=== PATIENT | female | born 1980 | race Caucasian/White ===

== ENCOUNTER → 2016-07-01 | Outpatient (CLI) | payer OTHER ==
--- NOTE | 2016-07-01 11:52 | US ---
EXAMINATION TYPE: US OB <=14 wks transvag DATE OF EXAM: 07/01/2016 11:08 AM COMPARISON: NONE CLINICAL HISTORY: O46.91 Spotting. Positive beta-hCG test EXAM PERFORMED: Transvaginal (TV) and Transabdominal (TA) EXAM MEASUREMENTS: GESTATIONAL AGE / DATING Physician Established: not established Dates by LMP: ( 8 weeks/6 days) EDC: 02/10/2017 Dates by First Scan: no prior Dates by Current Scan for: (8 weeks/6 days) EDC: 02/04/2017 MATERNAL ANATOMY Uterus: 8.7 x 6.0 x 5.2 cm Right Ovary: 2.4 x 1.5 x 2.5 cm Left Ovary: 2.5 x 1.7 x 2.3 cm Post CDS / Adnexa: wnl Presence of free fluid: wnl Presence of corpus luteal cyst: small rt cyst 1.2 x 1.0 x 1.2 cm Presence of subchorionic bleed: possible small 0.8 x 1.7 x 0.3 cm GESTATION / SURVEY CRL: 2.4 cm (9 weeks/1 days) MSD: 3.3 cm (8 weeks/3 days) Yolk Sac (normal less than 6mm): 5mm Heart Rate: 167 bpm Rhythm: Normal IUP: Viable IUP Date of LMP: 05/06/2016 Beta HcG (if available): na TECHNOLOGIST IMPRESSION: viable IUP , small rt cyst , subchorionic bleed: possible small 0.8 x 1.7 x 0.3 cm Single live intrauterine gestation is confirmed as gestational sac, yolk sac, pole are identifi ed. There is tiny subchorionic hemorrhage along superior margin of gestational sac with the elongated 1.7 x 0.3 cm fluid collection seen. No free fluid is seen in pelvic cul-de-sac. Both ovaries are identified. Within right ovary there is 1.2 cm dominant oval anechoic lesion may ref lect corpus luteal cyst. No suspicious solid or cystic extraovarian adnexal masses are seen. IMPRESSION: Single live intrauterine gestation is confirmed, mean crown-rump length is 2.4 cm corresponding to 9 week 1 day old fetus. Tiny subchorionic hemorrhage is felt present.
== END | disposition home or self-care (01) ==
LOC: RADUSWWP 10:04
PROVIDERS: ATTEND Obstetrics & Gynecology
DX: O46.91 Antepartum hemorrhage, unspecified, first trimester (principal); Z3A.09 9 weeks gestation of pregnancy
CPT/HCPCS: 76801; 76817

== ENCOUNTER 2017-06-16 17:35 | Emergency (ER) | payer OTHER ==
[2017-06-16 17:49] VITALS: RESP 18
[2017-06-16] MEDS ORDERED: SODIUM CHLORIDE 0.9% 500 ML IV STA (19:10)
--- NOTE | 2017-06-16 19:19 | ED ---
General Adult HPI - General Chief complaint: Upper Respiratory Infection Stated complaint: cold, cough, vomiting Time Seen by Provider: 06/16/17 18:56 Source: patient, family, RN notes reviewed Mode of arrival: ambulatory Limitations: no limitations - History of Present Illness Initial comments: Chief complaint and history of present illness a 37-year-old female with multiple complaints. She started having chills and fever 4-5 days ago. Muscle aches and pains. Today she has laryngitis. No skin rashes. Diarrhea yesterday. The patient did get her flu shot this year. - Related Data Home Medications Medication Instructions Recorded Confirmed Methylphenidate HCl 20 mg PO BID 06/16/17 06/16/17 [Methylphenidate ER] Norlyda 0.35mg 1 tab PO DAILY 06/16/17 06/16/17 clonazePAM [KlonoPIN] 1 mg PO DAILY PRN 06/16/17 06/16/17 guaiFENesin SYRUP 100MG/5ML 200 mg PO Q6H PRN 06/16/17 06/16/17 [Robitussin] Previous Rx's Medication Instructions Recorded Amoxicillin 500 mg PO Q8H 10 Days capsule 06/16/17 Allergies Allergy/AdvReac Type Severity Reaction Status Date / Time No Known Allergies Allergy Verified 06/16/17 19:19 Review of Systems ROS Statement: Those systems with pertinent positive or pertinent negative responses have been documented in the HPI. Review of systems. Patient denies any significant headache or visual acuity changes she has of a sore throat no stiff neck she does have laryngitis. She does have cough. Is occasionally short of breath because of it. Low back musculoskeletal discomfort. No change in urination. She had diarrhea. Denies any balance problems no neuro deficits. All systems were reviewed. Past medical problems none. Surgeries none. Family history the patient is adopted. Patient denies any ALLERGIES. Nonsmoker. Drinks alcohol socially. A coworker had similar problems last week. ROS Other: All systems not noted in ROS Statement are negative. Past Medical History Past Medical History: No Reported History History of Any Multi-Drug Resistant Organisms: None Reported Past Surgical History: No Surgical Hx Reported Past Psychological History: ADD/ADHD Smoking Status: Never smoker Past Alcohol Use History: Occasional Past Drug Use History: None Reported General Exam - General Exam Comments Initial Comments: General: The patient is awake and alert, complains of muscle aches and pains, cough. Vital signs shows temperature 98.1 pulse 110 respiratory rate 18 pulse ox 90% room air blood pressure 135/86 Eye: Pupils are equal, round and reactive to light, extra-ocular movements are intact ; there is normal conjunctiva bilaterally. No signs of icterus. Ears, nose, mouth and throat: There are moist mucous membranes Ference mildly red. Right tympanic membrane red mildly full. Left TM normal. Neck: The neck is supple, there is no tenderness, no anterior cervical lymphadenopathy , thyroid not enlarged. Cardiovascular: Tachycardic heart rate, 108. No murmur, rub or gallop is appreciated. Respiratory: Lungs are clear to auscultation, respirations are non-labored, breath sounds are equal. No wheezes, stridor, rales, or rhonchi. Cough for 2 days Gastrointestinal: Abdomen soft to palpation, active bowel sounds, no palpable masses. Diarrhea for 2 days. Back: There is no tenderness to palpation in the midline. There is no obvious deformity. No rashes noted. Musculoskeletal: Normal ROM, no tenderness, There is no pedal edema. There is no calf tenderness or swelling. Sensation intact. Pulses equal bilaterally 2+. Neurological: No complaint of weakness or dizziness or any neuro complaints. Skin: Skin is warm and dry and no rashes or lesions are noted. Limitations: no limitations Course Vital Signs 06/16/17 17:45 Temperature 98.1 F Pulse Rate 110 H Respiratory 18 Rate Blood Pressure 135/86 O2 Sat by Pulse 98 Oximetry Medical Decision Making - Medical Decision Making Medical decision making; this is a 37-year-old female with complaint of muscle aches and pains nausea and vomiting. And laryngitis ongoing for several days. Labs show white count of 3.9 hemoglobin 12 hematocrit of 40, potassium 3.8 BUN 6 creatinine 0.7 GFR greater than 60. Glucose 99. Flu influenza AB-. Strep test negative. Urine shows 3 reds 4 whites. The patient has a red right tympanic membrane is replaced on amoxicillin 500 mg one 3 times a day 10 days. - Lab Data Result diagrams: 06/16/17 19:36 06/16/17 19:36 Lab Results 06/16/17 06/16/17 06/16/17 Range/Units 17:50 17:50 19:36 WBC 9.4 (3.8-10.6) k/uL RBC 5.32 (3.80-5.40) m/uL Hgb 12.9 (11.4-16.0) gm/dL Hct 40.2 (34.0-46.0) % MCV 75.6 L (80.0-100.0) fL MCH 24.3 L (25.0-35.0) pg MCHC 32.2 (31.0-37.0) g/dL RDW 14.8 (11.5-15.5) % Plt Count 240 (150-450) k/uL Neutrophils % 61 % Lymphocytes % 27 % Monocytes % 6 % Eosinophils % 2 % Basophils % 0 % Neutrophils # 5.7 (1.3-7.7) k/uL Lymphocytes # 2.6 (1.0-4.8) k/uL Monocytes # 0.6 (0-1.0) k/uL Eosinophils # 0.2 (0-0.7) k/uL Basophils # 0.0 (0-0.2) k/uL Microcytosis Slight Sodium (137-145) mmol/L Potassium (3.5-5.1) mmol/L Chloride (98-107) mmol/L Carbon Dioxide (22-30) mmol/L Anion Gap mmol/L BUN (7-17) mg/dL Creatinine (0.52-1.04) mg/dL Est GFR (MDRD) Af Amer (>60 ml/min/1.73 sqM) Est GFR (MDRD) Non-Af (>60 ml/min/1.73 sqM) Glucose (74-99) mg/dL Calcium (8.4-10.2) mg/dL Total Bilirubin (0.2-1.3) mg/dL AST (14-36) U/L ALT (9-52) U/L Alkaline Phosphatase (38-126) U/L Total Protein (6.3-8.2) g/dL Albumin (3.5-5.0) g/dL Urine Color Urine Appearance (Clear) Urine pH (5.0-8.0) Ur Specific [place] (1.001-1.035) Urine Protein (Negative) Urine Glucose (UA) (Negative) Urine Ketones (Negative) Urine Blood (Negative) Urine Nitrite (Negative) Urine Bilirubin (Negative) Urine Urobilinogen (<2.0) mg/dL Ur Leukocyte Esterase (Negative) Urine RBC (0-5) /hpf Urine WBC (0-5) /hpf Ur Squamous Epith Cells (0-4) /hpf Urine Bacteria (None) /hpf Hyaline Casts (0-2) /lpf Urine Mucus (None) /hpf Influenza Type A RNA Not Detected (Not Detectd) Influenza Type B (PCR) Not Detected (Not Detectd) Group A Strep Rapid Negative (Negative) 06/16/17 06/16/17 Range/Units 19:36 19:46 WBC (3.8-10.6) k/uL RBC (3.80-5.40) m/uL Hgb (11.4-16.0) gm/dL Hct (34.0-46.0) % MCV (80.0-100.0) fL MCH (25.0-35.0) pg MCHC (31.0-37.0) g/dL RDW (11.5-15.5) % Plt Count (150-450) k/uL Neutrophils % % Lymphocytes % % Monocytes % % Eosinophils % % Basophils % % Neutrophils # (1.3-7.7) k/uL Lymphocytes # (1.0-4.8) k/uL Monocytes # (0-1.0) k/uL Eosinophils # (0-0.7) k/uL Basophils # (0-0.2) k/uL Microcytosis Sodium 143 (137-145) mmol/L Potassium 3.8 (3.5-5.1) mmol/L Chloride 104 (98-107) mmol/L Carbon Dioxide 23 (22-30) mmol/L Anion Gap 16 mmol/L BUN 6 L (7-17) mg/dL Creatinine 0.70 (0.52-1.04) mg/dL Est GFR (MDRD) Af Amer >60 (>60 ml/min/1.73 sqM) Est GFR (MDRD) Non-Af >60 (>60 ml/min/1.73 sqM) Glucose 99 (74-99) mg/dL Calcium 9.0 (8.4-10.2) mg/dL Total Bilirubin 0.5 (0.2-1.3) mg/dL AST 15 (14-36) U/L ALT 27 (9-52) U/L Alkaline Phosphatase 87 (38-126) U/L Total Protein 7.4 (6.3-8.2) g/dL Albumin 4.4 (3.5-5.0) g/dL Urine Color Yellow Urine Appearance Cloudy H (Clear) Urine pH 7.0 (5.0-8.0) Ur Specific [place] 1.013 (1.001-1.035) Urine Protein 1+ H (Negative) Urine Glucose (UA) Negative (Negative) Urine Ketones Negative (Negative) Urine Blood Negative (Negative) Urine Nitrite Negative (Negative) Urine Bilirubin Negative (Negative) Urine Urobilinogen 3.0 (<2.0) mg/dL Ur Leukocyte Esterase Moderate H (Negative) Urine RBC 3 (0-5) /hpf Urine WBC 4 (0-5) /hpf Ur Squamous Epith Cells 10 H (0-4) /hpf Urine Bacteria Few H (None) /hpf Hyaline Casts 5 H (0-2) /lpf Urine Mucus Moderate H (None) /hpf Influenza Type A RNA (Not Detectd) Influenza Type B (PCR) (Not Detectd) Group A Strep Rapid (Negative) Disposition Clinical Impression: Otitis media, Upper respiratory infection Disposition: HOME SELF-CARE Condition: Fair Instructions: Upper Respiratory Infection (ED), Otitis Media (ED) Additional Instructions: Increase fluids, use Tylenol and ibuprofen for aches pains fever use over-the- counter cold preparations as you desire. Follow-up with family physician return emergency room as needed Prescriptions: Amoxicillin 500 mg PO Q8H 10 Days capsule Referrals: Lamont Juarez DO [Primary Care Provider] - 1-2 days Time of Disposition: 20:44
[2017-06-16 19:51] LABS: Basophils % (A) 0 %; Eosinophils # (A) 0.2 k/uL (0-0.7); Eosinophils % (A) 2 %; HCT 40.2 % (34.0-46.0); HGB 12.9 gm/dL (11.4-16.0); Lymphocytes # (A) 2.6 k/uL (1.0-4.8); Lymphocytes % (A) 27 %; MCH 24.3 pg (25.0-35.0); MCHC 32.2 g/dL (31.0-37.0); MCV 75.6 fL (80.0-100.0); Mean Platelet Volume 6.9; Microcytosis Slight; Monocytes # (A) 0.6 k/uL (0-1.0); Monocytes % (A) 6 %; Neutrophils # (A) 5.7 k/uL (1.3-7.7); Neutrophils % (A) 61 %; Platelet Count 240 k/uL (150-450); RBC 5.32 m/uL (3.80-5.40); RDW 14.8 % (11.5-15.5); WBC 9.4 k/uL (3.8-10.6)
[2017-06-16 20:01] LABS: ALT 27 U/L (9-52); AST 15 U/L (14-36); Albumin 4.4 g/dL (3.5-5.0); Alkaline Phosphatase 87 U/L (38-126); Anion Gap 16 mmol/L; Blood Urea Nitrogen 6 mg/dL (7-17); Carbon Dioxide 23 mmol/L (22-30); Chloride 104 mmol/L (98-107); Glucose 99 mg/dL (74-99); Potassium 3.8 mmol/L (3.5-5.1); Sodium 143 mmol/L (137-145); Total Bilirubin 0.5 mg/dL (0.2-1.3); Total Protein 7.4 g/dL (6.3-8.2)
[2017-06-16 20:08] LABS: Appearance,Urine Cloudy (Clear); Bacteria,Urine Few /hpf; Bilirubin,Urine Negative (Negative); Blood,Urine Negative (Negative); Color,Urine Yellow; Glucose,Urine (UA) Negative (Negative); Hyaline Casts,Urine 5 /lpf (0-2); Ketones,Urine Negative (Negative); Leukocyte Esterase,Urine Moderate (Negative); Mucus,Urine Moderate /hpf; Nitrite,Urine Negative (Negative); Protein,Urine 1+ (Negative); RBC,Urine 3 /hpf (0-5); Specific Gravity,Urine 1.013 (1.001-1.035); Squamous Epithelial Cell,Urine 10 /hpf (0-4); WBC,Urine 4 /hpf (0-5)
--- NOTE | 2017-06-16 20:08 | XR ---
EXAMINATION TYPE: XR chest 2V DATE OF EXAM: 06/16/2017 COMPARISON: NONE INDICATION: Cough fever nausea vomiting diarrhea TECHNIQUE: Frontal and lateral views of the chest are obtained. FINDINGS: The heart size is normal. The pulmonary vasculature is normal. The lungs are clear. IMPRESSION: 1. No acute pulmonary process.
[2017-06-16] MEDS ORDERED: AMOXICILLIN 500MG STARTER PACK 3 CAP BTL PO STA (20:39)
[2017-06-16 20:59] VITALS: BP 116/61; PULSE 80; TEMP 97.1
== END 2017-06-16 20:58 | disposition home or self-care (01) ==
LOC: EC 17:35
DX: J06.9 Acute upper respiratory infection, unspecified (principal); H66.91 Otitis media, unspecified, right ear; R00.0 Tachycardia, unspecified; R19.7 Diarrhea, unspecified; J04.0 Acute laryngitis; F90.9 Attention-deficit hyperactivity disorder, unspecified type; Z79.3 Long term (current) use of hormonal contraceptives; Z79.899 Other long term (current) drug therapy
CPT/HCPCS: 36415; 71046; 80053; 81001; 85025; 87081; 87086; 87430; 87502; 99283

== ENCOUNTER → 2018-09-11 | Outpatient (CLI) | payer OTHER ==
--- NOTE | 2018-09-12 11:13 | MM ---
Reason for exam: screening (asymptomatic). Last mammogram was performed 3 years and 3 months ago. History: Patient is nulliparous. Taking hormonal contraceptives for 20 years. Physical Findings: A clinical breast exam by your physician is recommended on an annual basis and results should be correlated with mammographic findings. MG 3D Screening Mammo W/Cad Bilateral CC and MLO view(s) were taken. Prior study comparison: June 13, 2015, bilateral MG screening mammo w CAD. The breast tissue is heterogeneously dense. This may lower the sensitivity of mammography. No significant changes when compared with prior studies. ASSESSMENT: Negative, BI-RAD 1 RECOMMENDATION: Routine screening mammogram of both breasts at age 41. (unless clinical indication to start sooner)
== END | disposition home or self-care (01) ==
LOC: RADMAMWWP 13:50
PROVIDERS: ATTEND Obstetrics & Gynecology
DX: Z12.31 Encounter for screening mammogram for malignant neoplasm of breast (principal)
CPT/HCPCS: 77063; 77067

== ENCOUNTER → 2019-12-06 | Outpatient (CLI) | payer OTHER ==
--- NOTE | 2019-12-10 08:14 | MM ---
Reason for exam: screening (asymptomatic). Last mammogram was performed 1 year and 3 months ago. History: Patient had first child at age 37. Taking hormonal contraceptives for 20 years. Physical Findings: A clinical breast exam by your physician is recommended on an annual basis and results should be correlated with mammographic findings. MG Screening Mammo w CAD Bilateral CC and MLO view(s) were taken. Prior study comparison: September 11, 2018, bilateral MG 3d screening mammo w/cad. June 13, 2015, bilateral MG screening mammo w CAD. The breast tissue is extremely dense which could obscure a lesion on mammography. No significant changes when compared with prior studies. ASSESSMENT: Benign, BI-RAD 2 RECOMMENDATION: Routine screening mammogram of both breasts at age 41.
== END | disposition home or self-care (01) ==
LOC: RADMAMWWP 13:27
PROVIDERS: ATTEND Obstetrics & Gynecology
DX: Z12.31 Encounter for screening mammogram for malignant neoplasm of breast (principal)
CPT/HCPCS: 77067

== ENCOUNTER → 2021-04-22 | Outpatient (CLI) | payer OTHER ==
--- NOTE | 2021-04-24 10:50 | MM ---
Reason for exam: screening (asymptomatic). Last mammogram was performed 1 year and 5 months ago. History: Patient had first child at age 37. Taking hormonal contraceptives for 20 years. Physical Findings: A clinical breast exam by your physician is recommended on an annual basis and results should be correlated with mammographic findings. MG Screening Mammo w CAD Bilateral CC and MLO view(s) were taken. Prior study comparison: December 06, 2019, bilateral MG screening mammo w CAD. September 11, 2018, bilateral MG 3d screening mammo w/cad. The breast tissue is heterogeneously dense. This may lower the sensitivity of mammography. There is no discrete abnormality. No significant changes when compared with prior studies. ASSESSMENT: Negative, BI-RAD 1 RECOMMENDATION: Routine screening mammogram of both breasts in 1 year.
== END | disposition home or self-care (01) ==
LOC: RADMAMWWP 15:30
PROVIDERS: ATTEND Obstetrics & Gynecology
DX: Z12.31 Encounter for screening mammogram for malignant neoplasm of breast (principal)
CPT/HCPCS: 77067

== ENCOUNTER → 2022-08-03 | Outpatient (CLI) | payer OTHER ==
--- NOTE | 2022-08-04 18:03 | MM ---
Reason for Exam: Screening (asymptomatic). Last mammogram was performed 1 year(s) and 3 month(s) ago. Patient History: Menarche at age 13. First Full-Term at age 37. Late child-bearing (after 30). Currently using Hormonal Contraceptives, for 20 years. Last menstrual period: 07/13/2022 Risk Values: Sara 5 year model risk: 0.8%. NCI Lifetime model risk: 13.5%. Prior Study Comparison: 09/11/2018 Bilateral Screening Mammogram, [facility]. 12/06/2019 Bilateral Screening Mammogram, [facility]. 04/22/2021 Bilateral Screening Mammogram, [facility]. Tissue Density: The breast tissue is heterogeneously dense. This may lower the sensitivity of mammography. Findings: Analyzed By CAD. There is no suspicious group of microcalcifications or new suspicious mass in either breast. Overall Assessment: Benign, BI-RAD 2 Management: Screening Mammogram of both breasts in 1 year. 1. Patient should continue monthly self breast exams. 2. A clinical breast exam by your physician is recommended on an annual basis. 3. This exam should not preclude additional follow-up of suspicious palpable abnormalities. Electronically signed and approved by: Eliu Lyon M.D. Radiologist
== END | disposition home or self-care (01) ==
LOC: RADMAMWWP 13:53
PROVIDERS: ATTEND Obstetrics & Gynecology
DX: Z12.31 Encounter for screening mammogram for malignant neoplasm of breast (principal)
CPT/HCPCS: 77067